=== PATIENT | female | born 1955 | race Caucasian/White ===

== ENCOUNTER → 2016-12-11 | Outpatient (CLI) | payer OTHER ==
--- NOTE | 2016-12-14 08:15 | MM ---
Reason for exam: screening (asymptomatic). Last mammogram was performed 1 year and 1 month ago. History: Patient is postmenopausal. Took hormonal contraceptives for 15 years. Physical Findings: A clinical breast exam by your physician is recommended on an annual basis and results should be correlated with mammographic findings. MG Screening Mammo w CAD Bilateral CC and MLO view(s) were taken. Prior study comparison: November 07, 2015, bilateral MG screening mammo w CAD. November 02, 2014, bilateral MG screening mammo w CAD. There are scattered fibroglandular densities. There is no discrete abnormality. No significant changes when compared with prior studies. ASSESSMENT: Negative, BI-RAD 1 RECOMMENDATION: Routine screening mammogram of both breasts in 1 year.
== END | disposition home or self-care (01) ==
LOC: RADMAMWWP 07:42
PROVIDERS: ATTEND Obstetrics & Gynecology
DX: Z12.31 Encounter for screening mammogram for malignant neoplasm of breast (principal)

== ENCOUNTER → 2018-01-20 | Outpatient (CLI) | payer OTHER ==
--- NOTE | 2018-01-24 10:00 | MM ---
Reason for exam: screening (asymptomatic). Last mammogram was performed 1 year and 1 month ago. History: Patient is postmenopausal. Took hormonal contraceptives for 15 years. Physical Findings: A clinical breast exam by your physician is recommended on an annual basis and results should be correlated with mammographic findings. MG Screening Mammo w CAD Bilateral CC and MLO view(s) were taken. Prior study comparison: December 11, 2016, bilateral MG screening mammo w CAD. November 07, 2015, bilateral MG screening mammo w CAD. There are scattered fibroglandular densities. There is no discrete abnormality. No significant changes when compared with prior studies. ASSESSMENT: Negative, BI-RAD 1 RECOMMENDATION: Routine screening mammogram of both breasts in 1 year.
== END | disposition home or self-care (01) ==
LOC: RADMAMWWP 16:49
DX: Z12.31 Encounter for screening mammogram for malignant neoplasm of breast (principal)
CPT/HCPCS: 77067

== ENCOUNTER → 2019-02-06 | Outpatient (CLI) | payer MEDICARE, OTHER ==
--- NOTE | 2019-02-06 10:58 | MM ---
Reason for exam: screening (asymptomatic). Last mammogram was performed 1 year and 1 month ago. History: Patient is postmenopausal. Took hormonal contraceptives for 15 years. Physical Findings: A clinical breast exam by your physician is recommended on an annual basis and results should be correlated with mammographic findings. MG Screening Mammo w CAD Bilateral CC and MLO view(s) were taken. Prior study comparison: January 20, 2018, bilateral MG screening mammo w CAD. December 11, 2016, bilateral MG screening mammo w CAD. There are scattered fibroglandular densities. There is no discrete abnormality. ASSESSMENT: Negative, BI-RAD 1 RECOMMENDATION: Routine screening mammogram of both breasts in 1 year.
== END ==
LOC: RADMAMWWP 07:39
PROVIDERS: ATTEND Obstetrics & Gynecology
DX: Z12.31 Encounter for screening mammogram for malignant neoplasm of breast (principal)
CPT/HCPCS: 77067

== ENCOUNTER → 2020-03-18 | Outpatient (CLI) | payer MEDICARE, OTHER ==
--- NOTE | 2020-03-19 13:40 | MM ---
Reason for exam: screening (asymptomatic). Last mammogram was performed 1 year and 1 month ago. History: Patient is postmenopausal. Took hormonal contraceptives for 15 years. Physical Findings: A clinical breast exam by your physician is recommended on an annual basis and results should be correlated with mammographic findings. MG 3D Screening Mammo W/Cad Bilateral CC and MLO view(s) were taken. Prior study comparison: February 06, 2019, bilateral MG screening mammo w CAD. January 20, 2018, bilateral MG screening mammo w CAD. There are scattered fibroglandular densities. There is no discrete abnormality. ASSESSMENT: Negative, BI-RAD 1 RECOMMENDATION: Routine screening mammogram of both breasts in 1 year.
== END | disposition home or self-care (01) ==
LOC: RADMAMWWP 06:53
PROVIDERS: ATTEND Obstetrics & Gynecology
DX: Z12.31 Encounter for screening mammogram for malignant neoplasm of breast (principal)
CPT/HCPCS: 77063; 77067

== ENCOUNTER 2021-09-18 09:23 | Day surgery (SDC) | payer MEDICARE, OTHER ==
[2021-09-16 16:32] VITALS: BMI 34.3
[~2021-09-18 09:23] MED LIST: LACTATED RINGERS 1,000 ML IV SCH
[2021-09-18 09:50] VITALS: RESP 16; TEMP 98
[2021-09-18] MEDS ORDERED: LIDOCAINE 1% INJ 10MG/ML (20 ML MDV) ONE (10:02)
[2021-09-18] MEDS ORDERED: PROPOFOL 10 MG/ML 20 ML VIAL IV ONE (10:02)
--- NOTE | 2021-09-18 10:30 | P.GSHP ---
History of Present Illness H&P Date: 09/18/21 Chief Complaint: GERD This is a 65-year-old female with history of GERD. Patient presents today for EGD. Past Medical History Past Medical History: COPD, GERD/Reflux, Hyperlipidemia, Hypertension, Osteoarthritis (OA), Thyroid Disorder Additional Past Medical History / Comment(s): " SOME TROUBLE SWALLING AT TIMES " History of Any Multi-Drug Resistant Organisms: None Reported Past Surgical History: Adenoidectomy, Cholecystectomy, Tonsillectomy, Tubal Ligation Additional Past Surgical History / Comment(s): HIATAL HERNIA REPAIR,EGD, RIGHT KNEE ARTHROSCOPIC Past Anesthesia/Blood Transfusion Reactions: No Reported Reaction Smoking Status: Former smoker - Past Family History Father Family Medical History: Cancer Additional Family Medical History / Comment(s): LUNG CANCER Mother Family Medical History: Diabetes Mellitus Medications and Allergies Home Medications Medication Instructions Recorded Confirmed Type [id number] 1 each PO Q6HR PRN 01/31/15 09/18/21 History [Excedrin] Levothyroxine Sodium [Synthroid] 88 mcg PO HS 01/31/15 09/18/21 History Pantoprazole Sodium 40 mg PO DAILY 01/31/15 09/18/21 History Potassium Chloride [K-Tab ER] 10 meq PO BROWN 01/31/15 09/18/21 History Albuterol Sulfate [Proair 2 puff INHALATION Q4-6H PRN 09/16/21 09/18/21 History Digihaler] Calcium Carbonate/Vitamin D3 1 each PO DAILY 09/16/21 09/18/21 History [Calcium 600 mg-D3 10 Mcg (400 Iu)] Cholecalciferol (Vitamin D3) 125 mcg PO DAILY 09/16/21 09/18/21 History [Vitamin D3 (125 MCG = 5,000 IU)] LORazepam [Ativan] 0.5 mg PO DAILY 09/16/21 09/18/21 History Melatonin 3 mg PO HS 09/16/21 09/18/21 History Oxybutynin Chloride [Ditropan XL] 5 mg PO DAILY 09/16/21 09/18/21 History Rosuvastatin [Crestor] 10 mg PO DAILY 09/16/21 09/18/21 History Sertraline HCl [Zoloft] 50 mg PO HS 09/16/21 09/18/21 History Valsartan/Hydrochlorothiazide 1 tab PO DAILY 09/16/21 09/18/21 History [Diovan Hct 160-12.5 mg Tab] Allergies Allergy/AdvReac Type Severity Reaction Status Date / Time codeine AdvReac Abdominal Verified 09/18/21 09:50 Pain Surgical - Exam Vital Signs Temp Pulse Resp BP Pulse Ox 98.0 F 71 16 180/77 95 09/18/21 09:49 09/18/21 09:49 09/18/21 09:49 09/18/21 09:49 09/18/21 09:49 - General well developed, well nourished, no distress - Eyes PERRL - ENT normal pinna - Neck no masses - Respiratory normal expansion - Cardiovascular Rhythm: regular - Abdomen Abdomen: soft, non tender Assessment and Plan Assessment: . GERD. We'll perform EGD
--- NOTE | 2021-09-18 10:32 | P.OP ---
Date of Procedure: 09/18/21 Preoperative Diagnosis: GERD Postoperative Diagnosis: Antral gastritis Sliding hiatal hernia Mild esophagitis Procedure(s) Performed: EGD Anesthesia: JOBY Surgeon: Carlos Manuel Ocampo Pathology: other (Antrum, esophagus) Condition: stable Disposition: PACU Description of Procedure: Patient's placed on the endoscopy table in the lateral position. She received IV sedation. The gastro-/oropharynx passed in the esophagus and stomach. Scope was then placed through the pylorus. The first and second portion of the duodenum appeared normal. Scope was then brought back the antrum was mildly inflamed. A biopsies performed. Scope was then retroflexed and remainder of the stomach appeared normal. At the GE junction there was a sliding hiatal hernia. The GE junction was at 38 7 is. The distal esophagus appeared mildly inflamed. A biopsies performed. Scope was then brought back the proximal esophagus and this appeared normal. Scope withdrawn for patient.
[2021-09-18 10:46] VITALS: BP 109/66; PULSE 62
== END 2021-09-18 11:04 | disposition home or self-care (01) ==
LOC: ORWHC2ENDO 09:23
PROVIDERS: ATTEND Surgery
DX: K21.00 Gastro-esophageal reflux disease with esophagitis, without bleeding (principal); K29.50 Unspecified chronic gastritis without bleeding; K44.9 Diaphragmatic hernia without obstruction or gangrene; I10 Essential (primary) hypertension; J44.9 Chronic obstructive pulmonary disease, unspecified; E78.5 Hyperlipidemia, unspecified; M19.90 Unspecified osteoarthritis, unspecified site; F32.A Depression, unspecified; Z79.890 Hormone replacement therapy; Z79.899 Other long term (current) drug therapy; Z88.5 Allergy status to narcotic agent; Z90.89 Acquired absence of other organs; Z90.49 Acquired absence of other specified parts of digestive tract; Z87.891 Personal history of nicotine dependence; Z98.51 Tubal ligation status; Z80.1 Family history of malignant neoplasm of trachea, bronchus and lung; Z83.3 Family history of diabetes mellitus
CPT/HCPCS: 88305; 43239; J2001; J2704

== ENCOUNTER → 2022-04-22 | Outpatient (CLI) | payer MEDICARE, OTHER ==
--- NOTE | 2022-04-22 16:01 | MM ---
Reason for Exam: Screening (asymptomatic). Last mammogram was performed 2 year(s) and 1 month(s) ago. Patient History: Menarche at age 10. First Full-Term at age 20. Postmenopausal. Patient used Hormonal Contraceptives for 15 years. Risk Values: Yulissa 5 year model risk: 1.5%. NCI Lifetime model risk: 5.0%. Prior Study Comparison: 01/20/2018 Bilateral Screening Mammogram, [facility]. 02/06/2019 Bilateral Screening Mammogram, [facility]. 03/18/2020 Bilateral Screening Mammogram, [facility]. Tissue Density: The breast tissue is almost entirely fat. Findings: Analyzed By CAD. There is no suspicious group of microcalcifications or new suspicious mass in either breast. Overall Assessment: Negative, BI-RAD 1 Management: Screening Mammogram of both breasts in 1 year. A clinical breast exam by your physician is recommended on an annual basis and results should be correlated with mammographic findings. [facility] will attempt to contact patient to return for supplemental views and ultrasound if indicated. Electronically signed and approved by: New Anderson DO
== END | disposition home or self-care (01) ==
LOC: RADMAMWWP 07:28
PROVIDERS: ATTEND Family Medicine
DX: Z12.31 Encounter for screening mammogram for malignant neoplasm of breast (principal); Z78.0 Asymptomatic menopausal state
CPT/HCPCS: 77067

== ENCOUNTER → 2023-04-26 | Outpatient (CLI) | payer MEDICARE, OTHER ==
--- NOTE | 2023-04-27 18:53 | MM ---
Reason for Exam: Screening (asymptomatic). Last screening mammogram was performed 12 month(s) ago. Patient History: Menarche at age 10. First Full-Term at age 20. Postmenopausal. Patient used Hormonal Contraceptives for 15 years. Risk Values: Yulissa 5 year model risk: 1.5%. NCI Lifetime model risk: 4.8%. Prior Study Comparison: 02/06/2019 Bilateral Screening Mammogram, [facility]. 03/18/2020 Bilateral Screening Mammogram, [facility]. 04/22/2022 Bilateral MG screening mammo w CAD, [facility]. Tissue Density: There are scattered fibroglandular densities. Findings: Analyzed By CAD. Pattern appears symmetrical and stable. No significant interval change is evident. No suspicious groups of microcalcifications, spiculated or lobular masses, architectural distortion or other secondary signs of malignancy are mammographically apparent. Overall Assessment: Benign, BI-RAD 2 Management: Screening Mammogram of both breasts in 1 year. A negative mammogram report should not preclude additional follow up of suspicious palpable abnormalities. Patient should continue monthly self breast exam. A clinical breast exam by your physician is recommended on an annual basis and results should be correlated with mammographic findings. Electronically signed and approved by: Dom Carranza D.O. Radiologis
== END | disposition home or self-care (01) ==
LOC: RADMAMWWP 13:40
PROVIDERS: ATTEND Family Medicine
DX: Z12.31 Encounter for screening mammogram for malignant neoplasm of breast (principal); Z78.0 Asymptomatic menopausal state
CPT/HCPCS: 77063; 77067

== ENCOUNTER → 2023-08-20 | Outpatient (CLI) | payer MEDICARE, OTHER ==
--- NOTE | 2023-08-20 12:50 | BD ---
EXAMINATION TYPE: Axial Bone Density DATE OF EXAM: 08/20/2023 CLINICAL HISTORY: 67 years old Female. ICD-10 CODE: M81.0 AGE RELATED OSTEO Height: 63.75in Weight: 208lb FRAX RISK QUESTIONS: History of Fracture in Adulthood: yes Secondary Osteoporosis: RISK FACTORS HISTORY OF: Surgery to Spine/Hip(right/left)/Wrist (right/left): left wrist surgery When: 2022 MEDICATIONS: Thyroid Medications: Which medication: Synthroid How Lon+ years EXAM MEASUREMENTS: Bone mineral densitometry was performed using the [employer]. Bone mineral density as measured about the Lumbar spine is: ----- L1-L4(G/cm2): 1.263 T Score Values are as follows: ----- L1: 0.2 ----- L2: 0.1 ----- L3: 0.8 ----- L4: 1.5 ----- L1-L4: 0.7 Z Score Values are as follows: ----- L1: 0.9 ----- L2: 0.7 ----- L3: 1.5 ----- L4: 2.2 ----- L1-L4: 1.4 Bone mineral density has: Increased 7% since study of: 09-17-15 Bone mineral density about the R hip (g/cm2): 0.910 Bone mineral density about the L hip (g/cm2): 0.927 T Score values are as follows: -----R Neck: -2.0 -----L Neck: -1.9 -----R Total: -0.8 -----L Total: -0.6 Z Score values are as follows: -----R Neck: -0.9 -----L Neck: -0.9 -----R Total: 0.0 -----L Total: 0.1 Bone mineral density has: Increased 1.8% since study of: 09-17-15 FRAX%s: The graph provided illustrates a 17% chance for a major osteoporotic fx and a 3% chance for t he hips probability for fx in 10 years time. IMPRESSION: Osteopenia (T Score between -2.5 and -1). There is slightly increased risk of fracture and the patient may be considered for treatment. Re-Screen 2-5 years. NOTE: T-SCORE=SD OF THE YOUNG ADULT MEAN.
== END | disposition home or self-care (01) ==
LOC: RADBDWWP 11:00
PROVIDERS: ATTEND Family Medicine
DX: M85.89 Other specified disorders of bone density and structure, multiple sites (principal); M81.0 Age-related osteoporosis without current pathological fracture
CPT/HCPCS: 77080

== ENCOUNTER → 2023-11-24 | Outpatient (CLI) | payer MEDICARE, OTHER ==
--- NOTE | 2023-11-24 13:10 | NM ---
EXAMINATION TYPE: NM thyroid image only DATE OF EXAM: 11/24/2023 COMPARISON: NONE CLINICAL INDICATION: Female, 68 years old with history of R22.0 LOCALIZED SWELLING, MASS AND LUMP, HE AD; TECHNIQUE: After the intravenous administration of 9.8 mCi Tc 99m Sodium Pertechnetate. FINDINGS: Homogeneous uptake throughout both thyroid lobes without evidence for hot or cold nodule. IMPRESSION: Normal thyroid scan and uptake.
== END | disposition home or self-care (01) ==
LOC: RADNMMAIN 10:31
PROVIDERS: ATTEND Family Medicine
DX: R22.0 Localized swelling, mass and lump, head (principal)
CPT/HCPCS: 78013; A9512

== ENCOUNTER → 2024-04-28 | Outpatient (CLI) | payer MEDICARE, OTHER ==
--- NOTE | 2024-05-01 09:01 | MM ---
Reason for Exam: Screening (asymptomatic). Last screening mammogram was performed 12 month(s) ago. Patient History: Menarche at age 10. First Full-Term at age 20. Postmenopausal. Patient used Hormonal Contraceptives for 15 years. Risk Values: Yulissa 5 year model risk: 1.5%. NCI Lifetime model risk: 4.5%. Prior Study Comparison: 03/18/2020 Bilateral Screening Mammogram, [facility]. 04/22/2022 Bilateral MG screening mammo w CAD, [facility]. 04/26/2023 Bilateral MG 3D screening mammo w/cad, [facility]. Tissue Density: The breasts are almost entirely fatty. Findings: Analyzed By CAD. Right breast: There is no suspicious group of microcalcifications or new suspicious mass. Left breast: There is no suspicious group of microcalcifications or new suspicious mass. Overall Assessment: Negative, BI-RAD 1 Management: Screening Mammogram of both breasts in [address] [facility] will attempt to contact patient to return for supplemental views and ultrasound if indicated. Patient should continue monthly self-breast exams. A clinical breast exam by your physician is recommended on an annual basis. This exam should not preclude additional follow-up of suspicious palpable abnormalities. Note on Yulissa scores and lifetime risk: 1. A Yulissa score greater than 3% is considered moderate risk. If this is the case, consider specialist referral to assess eligibility for a risk reducing agent. 2. If overall lifetime risk for the development of breast cancer is 20% or higher, the patient may qualify for future screening with alternating mammogram and breast MRI. [facility], , 05/01/2024 8:58 AM. Electronically signed and approved by: New Anderson DO
== END | disposition home or self-care (01) ==
LOC: RADMAMWWP 09:32
PROVIDERS: ATTEND Family Medicine
DX: Z12.31 Encounter for screening mammogram for malignant neoplasm of breast (principal); Z78.0 Asymptomatic menopausal state
CPT/HCPCS: 77063; 77067